=== PATIENT | male | born 1955 | race Caucasian/White ===

== ENCOUNTER 2023-07-08 09:02 | Outpatient (REF) | payer MEDICARE, SELFPAY ==
[2023-07-08 17:57] LABS: Anion Gap 15 (12-20); Blood Urea Nitrogen 18 mg/dL (9-16); Calcium 9.6 mg/dL (8.4-10.2); Carbon Dioxide 25 mmol/L (22-29); Chloride 103 mmol/L (96-108); Estimated Glomerular Filt Rate 55; Glucose Random 171 mg/dL (60-115); Sodium 139 mmol/L (135-145)
== END 2023-07-08 09:03 | disposition home or self-care (01) ==
LOC: HO.HKASLDS 09:02
PROVIDERS: Visit Provider Internal Medicine Hypertension Specialist
DX: N18.9 Chronic kidney disease, unspecified (principal)
CPT/HCPCS: 36415; 80048

== ENCOUNTER 2023-07-13 13:12 | Outpatient (AMB) | payer MEDICARE, SELFPAY ==
[2023-07-13 13:30] VITALS: BP 110/60; PULSE 83; O2SAT 95; BMI 39.1
--- NOTE | 2023-07-13 13:30 | HO.NEPHOV_ITS ---
HPI HPI Comments History of Present Illness Details I had the privilege of seeing Mathew in follow-up of his hypertension and long history of nephrolithiasis. He has history of high BMI. In 2010 he had DUY with left ureteral stone which he passed just before the lithotripsy could be done. In June 2012 he had recurrence of pain and CT showed right proximal ureteral stone of 5 mm with mild hydronephrosis and DUY. He has no blood in the urine or flank pain. His blood pressure is controlled at home. He denies taking nonsteroidal anti-inflammatories on a regular basis. He has history of proteinuria. He denies any systemic complaints. He had RT for prostate cancer. [facility] Medical History (Updated 07/13/23 @ 13:38 by Luis Mcdaniels MD) Hypertension Type 2 diabetes mellitus with diabetic nephropathy CKD (chronic kidney disease) Social History Alcohol intake: never Patient Tobacco Use Status: Never used Tobacco Vital Signs 07/13/23 13:30 Height 5 ft 10 in Weight 272 lb 4 oz BMI 39.1 BP 110/60 Blood Pressure Location Lt brachial Position Sitting Pulse 83 Pulse Source Pulse Oximeter Pulse Oximetry (%) 95 Oxygen Delivery Method Room Air Physical Exam Vital Signs: Last Vital Signs Pulse 83 07/13/23 13:30 BP 110/60 07/13/23 13:30 Pulse Ox 95 07/13/23 13:30 Oxygen Delivery Method Room Air 07/13/23 13:30 BMI result Body Mass Index 39.1 Const General: comfortable and no acute distress Orientation/consciousness: patient oriented x3 HEENT Head: Yes normocephalic Mouth: Normal oral and palatal mucosa present Eyes EOM: EOMs intact bilaterally Neck Neck: Yes supple Resp Auscultation: clear to auscultation bilaterally Cardio Jugular venous distension: no JVD Rate: regular rate GI Palpation (GI): Soft to palpation Auscultation: normal bowel sounds General: Yes no CVA tenderness Back/Spine/Pelvis Back: no CVA tenderness Skin General skin exam: no rashes or lesions noted Neuro General: patient oriented x3 and moves all extremities Extrem General: Yes no pedal edema Assessment & Plan Assessment & Plan (1) CKD (chronic kidney disease) stage 2, GFR 60-89 ml/min: Code(s): N18.2 - Chronic kidney disease, stage 2 (mild) (2) Proteinuria: Code(s): R80.9 - Proteinuria, unspecified Qualifiers: Proteinuria type: other Qualified Code(s): R80.8 - Other proteinuria (3) Nephrolithiasis: Code(s): N20.0 - Calculus of kidney (4) Renal cyst: Code(s): N28.1 - Cyst of kidney, acquired Plan Mathew has stable renal functions. His serum creatinine is currently 1.3. 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 His blood pressure has been at goal. He needs to lose some weight. He could continue current dose of lisinopril. He avoids nonsteroidal anti-inflammatory medications. He maintains good hydration. He has not had any renal calculi recently. He needs to maintain appropriate diet for his renal stone disease. I ordered a 24 hour urine collection for creatinine clearance. I plan to start him on Farxiga/ Jardiance at next visit. He was encouraged to avoid nonsteroidal anti-inflammatories and maintain good hydration. Follow-up lab work ordered. Appointment given. Answered all questions. Orders: Orders Protein, 24 Hr Urine Group Today N18.2 - Chronic kidney disease, stage 2 (mild), N20.0 - Calculus of kidney, N28.1 - Cyst of kidney, acquired, R80.9 - Proteinuria, unspecified Creatinine Today N18.2 - Chronic kidney disease, stage 2 (mild), N20.0 - Calculus of kidney, N28.1 - Cyst of kidney, acquired, R80.9 - Proteinuria, unspecified Blood Urea Nitrogen Today N18.2 - Chronic kidney disease, stage 2 (mild), N20.0 - Calculus of kidney, N28.1 - Cyst of kidney, acquired, R80.9 - Proteinuria, unspecified Electrolytes Today N18.2 - Chronic kidney disease, stage 2 (mild), N20.0 - Calculus of kidney, N28.1 - Cyst of kidney, acquired, R80.9 - Proteinuria, unspecified Immunofixation Pnl, Serum Today N18.2 - Chronic kidney disease, stage 2 (mild), N20.0 - Calculus of kidney, N28.1 - Cyst of kidney, acquired, R80.9 - Proteinuria, unspecified Coding Level of Care Code Est Pt Level 4 (08021) Diagnoses CKD (chronic kidney disease) stage 2, GFR 60-89 ml/min N18.2 Other proteinuria R80.8 Proteinuria type: other Nephrolithiasis N20.0 Renal cyst N28.1 Results Reviewed Nephrology Results: Sodium 139 mmol/L (135-145) 07/08/23 Potassium 4.0 mmol/L (3.3-5.1) 07/08/23 Chloride 103 mmol/L (96-108) 07/08/23 Carbon Dioxide 25 mmol/L (22-29) 07/08/23 BUN 18 mg/dL (9-16) H 07/08/23 Creatinine 1.30 mg/dL (0.5-1.4) 07/08/23 Calcium 9.6 mg/dL (8.4-10.2) 07/08/23
== END 2023-07-13 14:17 | disposition home or self-care (01) ==
PROVIDERS: PCP Internal Medicine; Visit Provider Internal Medicine Nephrology
DX: N18.2 Chronic kidney disease, stage 2 (mild) (principal); R80.8 Other proteinuria; N20.0 Calculus of kidney; N28.1 Cyst of kidney, acquired
CPT/HCPCS: 99214

== ENCOUNTER → 2023-07-13 13:12 | Outpatient (BNVA) | payer MEDICARE, SELFPAY | PROVIDERS: Visit Provider Internal Medicine Nephrology | DX: N18.2 Chronic kidney disease, stage 2 (mild) (principal); N20.0 Calculus of kidney; N28.1 Cyst of kidney, acquired; R80.8 Other proteinuria | CPT/HCPCS: 99212 ==

== ENCOUNTER 2023-10-20 11:09 | Outpatient (REF) | payer MEDICARE, SELFPAY ==
[2023-10-20 18:14] LABS: Creatinine, mg/dL 92.21; Protein mg/dL 22 mg/dL
[2023-10-20 18:15] LABS: Anion Gap 17 (12-20); Blood Urea Nitrogen 15 mg/dL (9-16); Carbon Dioxide 26 mmol/L (22-29); Chloride 102 mmol/L (96-108); Estimated Glomerular Filt Rate 57; Potassium 4.5 mmol/L (3.3-5.1); Sodium 140 mmol/L (135-145)
[2023-10-20 20:32] LABS: Protein 24 Hr Urine 473 mg/Day (<150); Total Volume 24 Hour Urine 2150 mL
[2023-10-26 11:49] LABS: IgA 158 mg/dL (70-320); IgG 624 mg/dL (600-1540); IgM 50 mg/dL (50-300)
== END 2023-10-20 11:10 | disposition home or self-care (01) ==
LOC: HO.HKASLDS 11:09
PROVIDERS: Visit Provider Internal Medicine Nephrology
DX: N28.1 Cyst of kidney, acquired (principal); N20.0 Calculus of kidney; R80.9 Proteinuria, unspecified; N18.2 Chronic kidney disease, stage 2 (mild)
CPT/HCPCS: 36415; 80051; 82565; 82784; 84156; 84520; 86334

== ENCOUNTER 2023-10-26 10:44 | Outpatient (AMB) | payer MEDICARE, SELFPAY ==
[2023-10-26 11:02] VITALS: BP 126/60; PULSE 96; O2SAT 93; BMI 38.3
--- NOTE | 2023-10-26 11:02 | HO.NEPHOV_ITS ---
Vital Signs 10/26/23 11:02 Height 5 ft 10 in Weight 267 lb BMI 38.3 BP 126/60 Blood Pressure Location Lt brachial Position Sitting Pulse 96 Pulse Source Pulse Oximeter Pulse Oximetry (%) 93 Oxygen Delivery Method Room Air Intake Visit Reasons: 3 mon follow up/ Conf Embedded Software Developer Required: No Accompanied by: Self / Same As Patient Allergies simvastatin Allergy (Verified 10/26/23 11:04) Unknown HPI Comments Details: I had the privilege of seeing Mathew in follow-up of his hypertension and long history of nephrolithiasis. He has history of high BMI. In 2010 he had DUY with left ureteral stone which he passed just before the lithotripsy could be done. In June 2012 he had recurrence of pain and CT showed right proximal ureteral stone of 5 mm with mild hydronephrosis and DUY. He has no blood in the urine or flank pain. His blood pressure is controlled at home. He denies taking nonsteroidal anti-inflammatories on a regular basis. He has history of proteinuria. He denies any systemic complaints. He had RT for prostate cancer. [facility] Medical History (Updated 07/13/23 @ 13:38 by Luis Mcdaniels MD) Hypertension Type 2 diabetes mellitus with diabetic nephropathy CKD (chronic kidney disease) Surgical History History of wisdom tooth extraction History of appendectomy History of cataract surgery Family History Sister Diabetes Hypertension A-fib Dementia Mother Stroke Father Prostate cancer Heart disease Social History Alcohol intake: never Patient Tobacco Use Status: Never used Tobacco Physical Exam Vital Signs: Last Vital Signs Pulse 96 10/26/23 11:02 BP 126/60 10/26/23 11:02 Pulse Ox 93 10/26/23 11:02 Oxygen Delivery Method Room Air 10/26/23 11:02 BMI result Body Mass Index 38.3 Const General: comfortable and no acute distress Orientation/consciousness: patient oriented x3 HEENT Head: Yes normocephalic Mouth: Normal oral and palatal mucosa present Eyes EOM: EOMs intact bilaterally Neck Neck: Yes supple Resp Auscultation: clear to auscultation bilaterally Cardio Jugular venous distension: no JVD Rate: regular rate GI Palpation (GI): Soft to palpation Auscultation: normal bowel sounds General: Yes no CVA tenderness Back/Spine/Pelvis Back: no CVA tenderness Skin General skin exam: no rashes or lesions noted Neuro General: patient oriented x3 and moves all extremities Extrem General: Yes no pedal edema Results Reviewed Nephrology Results: Sodium 140 mmol/L (135-145) 10/20/23 Potassium 4.5 mmol/L (3.3-5.1) 10/20/23 Chloride 102 mmol/L (96-108) 10/20/23 Carbon Dioxide 26 mmol/L (22-29) 10/20/23 BUN 15 mg/dL (9-16) 10/20/23 Creatinine 1.26 mg/dL (0.5-1.4) 10/20/23 Calcium 9.6 mg/dL (8.4-10.2) 07/08/23 Assessment & Plan Assessment & Plan (1) Proteinuria: Code(s): R80.9 - Proteinuria, unspecified Category: Medical Qualifiers: Proteinuria type: other Qualified Code(s): R80.8 - Other proteinuria (2) CKD (chronic kidney disease) stage 2, GFR 60-89 ml/min: Code(s): N18.2 - Chronic kidney disease, stage 2 (mild) Category: Medical (3) Nephrolithiasis: Code(s): N20.0 - Calculus of kidney Category: Medical (4) Renal cyst: Code(s): N28.1 - Cyst of kidney, acquired Category: Medical Plan Mathew has stable renal functions. His serum creatinine is currently 1.26. 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 His blood pressure has been at goal. He needs to lose some weight. He could continue current dose of lisinopril, which I may increase at next visit. He avoids nonsteroidal anti-inflammatory medications. He maintains good hydration. He has not had any renal calculi recently. He needs to maintain appropriate diet for his renal stone disease. He is going to start Trulicity soon. I plan to start him on Farxiga/ Jardiance with time. He was encouraged to avoid nonsteroidal anti-inflammatories and maintain good hydration. Follow-up lab work ordered. Appointment given. Answered all questions. Orders: Orders Creatinine Today N18.2 - Chronic kidney disease, stage 2 (mild), N20.0 - Calculus of kidney, N28.1 - Cyst of kidney, acquired, R80.8 - Other proteinuria Blood Urea Nitrogen Today N18.2 - Chronic kidney disease, stage 2 (mild), N20.0 - Calculus of kidney, N28.1 - Cyst of kidney, acquired, R80.8 - Other proteinuria Protein Creatinine Ratio, Ur Today N18.2 - Chronic kidney disease, stage 2 (mild), N20.0 - Calculus of kidney, N28.1 - Cyst of kidney, acquired, R80.8 - Other proteinuria Electrolytes Today N18.2 - Chronic kidney disease, stage 2 (mild), N20.0 - Calculus of kidney, N28.1 - Cyst of kidney, acquired, R80.8 - Other proteinuria Coding Level of Care Code Est Pt Level 4 (14502) Diagnoses Other proteinuria R80.8 Proteinuria type: other CKD (chronic kidney disease) stage 2, GFR 60-89 ml/min N18.2 Nephrolithiasis N20.0 Renal cyst N28.1
== END 2023-10-26 11:34 | disposition home or self-care (01) ==
PROVIDERS: Visit Provider Internal Medicine Nephrology
DX: R80.8 Other proteinuria (principal); N18.2 Chronic kidney disease, stage 2 (mild); N20.0 Calculus of kidney; N28.1 Cyst of kidney, acquired
CPT/HCPCS: 99214

== ENCOUNTER → 2023-10-26 10:44 | Outpatient (BNVA) | payer MEDICARE, SELFPAY | PROVIDERS: Visit Provider Internal Medicine Nephrology | DX: I12.9 Hypertensive chronic kidney disease with stage 1 through stage 4 chronic kidney disease, or unspecified chronic kidney disease (principal); N20.0 Calculus of kidney; R80.9 Proteinuria, unspecified; N28.1 Cyst of kidney, acquired; N18.2 Chronic kidney disease, stage 2 (mild) | CPT/HCPCS: 99212 ==

== ENCOUNTER 2024-05-11 14:21 | Outpatient (REF) | payer MEDICARE, SELFPAY ==
[2024-05-11 17:54] LABS: Anion Gap 14 (12-20); Blood Urea Nitrogen 25 mg/dL (9-16); Carbon Dioxide 26 mmol/L (22-29); Chloride 103 mmol/L (96-108); Estimated Glomerular Filt Rate 53; Potassium 3.6 mmol/L (3.3-5.1); Sodium 139 mmol/L (135-145)
[2024-05-11 18:14] LABS: Creatinine Urine 164.49 mg/dL; Protein/Creatinine Ratio, Ur 0.35 (<0.2); Total Protein Urine Random 57 mg/dL (<12)
--- OUTSIDE RECORDS SUMMARY | 2024-05-11 18:19 | XMS_ITS | Clinical Summary ---
Author Organization [facility] Address [address] [facility] [address] [place] [address] Phone Care Team Providers Care Endodontic Assistant Name Role Phone Aimee Quigley MD Primary Care Provider [phone] Allergies Active Allergy Reactions Criticality Noted Date Comments Simvastatin Other (see comments) 11/11/2020 Medications multivitamine, geriatric, (CENTRUM SILVER) tablet Take 1 tablet by mouth 1 (one) time each day Active metFORMIN (GLUCOPHAGE) 1000 MG tablet Take 1,000 mg by mouth 1 (one) time each day in the morning 500mg at night 1 Active allopurinol (ZYLOPRIM) 300 MG tablet Take 300 mg by mouth 1 (one) time each day in the morning 2 Active allopurinol (ZYLOPRIM) 100 MG tablet Take 200 mg by mouth 1 (one) time each day in the evening 9 Active colchicine 0.6 MG tablet if needed 2 Active Praluent 75 MG/ML solution auto-injector INJECT 1 PEN SUBCUTANEOUSLY EVERY 2 WEEKS 2 Active Ozempic, 0.25 or 0.5 MG/DOSE, 2 MG/1.5ML solution pen-injector per week 3 Active lisinopril-hyd roCHLOROthiazi de (PRINZIDE,ZEST ORETIC) 10-12.5 MG per tablet Take 1 tablet by mouth 1 (one) time each day Active Active Problems Problem Noted Date Diagnosed Date Benign polyp of colon 06/03/2021 Depressive disorder 06/03/2021 Diabetes mellitus 06/03/2021 Gout 06/03/2021 Hypercholesterolemia 06/03/2021 Malignant neoplasm of prostate 06/03/2021 Obesity 06/03/2021 Obstructive sleep apnea syndrome 06/03/2021 Tubular adenoma 06/03/2021 Type 2 diabetes mellitus with diabetic nephropat hy 06/03/2021 Hypertension 11/12/2020 Acquired renal cystic disease 11/11/2020 Chronic kidney disease stage 3 11/11/2020 Essential hypertension 11/11/2020 Proteinuria 11/11/2020 Renal stone 11/11/2020 Immunizations Name Administration Dates Next Due Pneumococcal Conjugate 13-Valent 01/02/2015 Pneumococcal Polysaccharide 01/27/2016 Tdap 03/16/2012 Zoster 01/02/2015 Family History Medical History Relation Comments Cancer Father prostate Gout Father Heart disease Father Hypertension Father Stroke Father Diabetes Sibling 1 sister Hypertension Sibling 2 Gout Sibling 3 sister Relation Status Comments Father Mother Sibling 1 Sibling 2 Sibling 3 Social History Tobacco Use Types Packs/Day Years Used Date Smoking Tobacco: Never Smokeless Tobacco: Never Tobacco Cessation:Counseling Given: Not Answered Alcohol Use Standard Drinks/Week Comments Yes 0 (1 standard drink = 0.6 oz pure alcohol) Alcoholic Drinks/day: Occasional social drink Sex and Gender Information Value Date Recorded Sex Assigned at Not on file Legal Sex Male 5:07 PM EST Gender Identity Not on file Sexual Orientation Not on file Last Filed Vital Signs Vital Sign Reading Time Taken Comments Blood Pressure 118/72 07/02/2022 3:19 PM EDT Pulse 72 07/02/2022 3:19 PM EDT Temperature - - Respiratory Rate - - Oxygen Saturation 95% 12/23/2021 3:31 PM EDT Inhaled Oxygen Concentration - - Weight 120 kg (265 lb) 07/02/2022 3:19 PM EDT Height 175.3 cm (5' 9 ) 04/23/2020 12:01 PM EST Body Mass Index 39.13 04/23/2020 12:01 PM EST Plan of Treatment Health Maintenance Due Date Last Done Comments Colorectal Cancer Screening: Annual FOBT 07/08/2003 Colorectal Cancer Screening: Colonoscopy 07/08/2003 Colorectal Cancer Screening: Sigmoidoscopy 07/08/2003 Pneumococcal Vaccine: 65+ Years (3 of 3 - PPSV23 or PCV20) 01/26/2021 01/27/2016, 01/02/2015 Diabetes: Hemoglobin A1C 06/03/2021 10/10/2018 Diabetes: Ophthalmology Exam 06/03/2021 Diabetes: Pedal Pulse Checked 06/03/2021 Diabetes: Sensory Foot Exam 06/03/2021 Diabetes: Visual Foot Exam 06/03/2021 Influenza Vaccine (#1) 2023 Hepatitis B Vaccine Aged Out No longe r eligible based on patient's age to complete this topic Procedures Procedure Name Priority Date/Time Associated Diagnosis Comments BLOOD PANEL (HC) Routine 10/10/2018 12:0 0 AM EDT from Last 3 Months or Most Recently Relevant to Health Maintenance Results * (ABNORMAL) Blood Panel (10/10/2018 12:00 AM EDT) Sodium 140 137 - 145 mmol/L PVNMA Potassium 4.4 3.5 - 5.1 mmol/L PVNMA BUN 22(H) 9 - 20 mg/dl PVNMA Carbon Dioxide (CO2) 27 22 - 30 mmol/L PVNMA eGFR 67 >60 ml/min PVNMA Hemoglobin A1C 6.9(H) <5 % PVNMA Creatinine 1.3 0.70 - 1.30 mg/dl PVNMA eGFR Non- 58(L) >60 ml/min PVNMA 10/10/2018 us Rtama Conversion LAB [id number] LICITED RESULTS Final Result PVNMA from Last 3 Months or Most Recently Relevant to Health Maintenance Insurance [employer] Care Teams Endodontic Assistant Relationship Specialty Start Date End Date Aimee Quigley MD PCP - General Internal Medicine 06/03/21
--- OUTSIDE RECORDS SUMMARY | 2024-05-11 18:19 | XMS_ITS | Clinical Summary ---
Author Organization [facility] Address [address] [place] [address] Care Team Providers Care Rod And Tube Straightener Name Role Phone Karrie Ferreira MD Primary Care Provider [phone] Allergies Active Allergy Reactions Criticality Noted Date Comments Statins Other (See Comments) 11/11/2020 Medications Medication Sig Dispensed Refills Start Date End Date Status metFORMIN (GLUCOPHAGE) 1000 MG tablet Take 1 tablet (1,000 mg total) by mouth. 12/23/2022 Active lisinopril-hydroC HLOROthiazide (PRINZIDE,ZESTORE TIC) 10-12.5 MG per tablet Take 1 tablet by mouth. Active allopurinol (ZYLOPRIM) 300 MG tablet Take 1 tablet (300 mg total) by mouth 2 times a day. Active glipiZIDE (GLUCOTROL XL) 5 MG 24 hr tablet Take 1 tablet (5 mg total) by mouth. Active Repatha 140 MG/ML injection INJECT 140 MG SUBCUTANEOUS INFUSION EVERY 14 DAYS Active Trulicity 0.75 MG/0.5ML prefilled pen injection INJECT 1 PREFILLED PEN SUBCUTANEOUSLY ONCE WEEKLY 12/29/2023 Active Multiple Vitamins-Minerals (Centrum Silver) tablet Take 1 tablet by mouth daily. Active primidone (MYSOLINE) 50 MG tabletIndications :Benign essential tremor Start 0.5 tablet nightly for 2 weeks then increase to 1 tablet nightly 90 tablet 3 01/17/2024 Active Active Problems Problem Noted Date Diagnosed Date Diabetes mellitus 06/03/2021 Type 2 diabetes mellitus with diabetic nephropat hy 06/03/2021 Essential hypertension 11/11/2020 Family History Medical History Relation Name Comments Prostate cancer Father Stroke Mother Atrial fibrillation Sister 1 Diabetes type II Sister 1 Dementia Sister 2 Tremor Neg Hx Relation Name Status Comments Father Mother Sister 1 Alive Sister 2 Alive Social History Tobacco Use Types Packs/Day Years Used Date Smoking Tobacco: Never Smokeless Tobacco: Never Alcohol Use Standard Drinks/Week Comments Not Currently 0 (1 standard drink = 0.6 oz pur e alcohol) Sex and Gender Information Value Date Recorded Sex Assigned at Male 11/11/2023 10:13 AM EDT Gender Identity Male 11/11/2023 10:13 AM EDT Sexual Orientation Heterosexual (straight) 11/10 10:13 AM EDT Last Filed Vital Signs Vital Sign Reading Time Taken Comments Blood Pressure - - Pulse - - Temperature - - Respiratory Rate - - Oxygen Saturation 97% 01/17/2024 9:45 AM EDT Inhaled Oxygen Concentration - - Weight 119 kg (262 lb) 01/17/2024 9:45 AM EDT Height 177.8 cm (5' 10 ) 01/17/2024 9:45 AM EDT Body Mass Index 37.59 01/17/2024 9:45 AM EDT Plan of Treatment Upcoming Encounters Date Type Department Care Team (Late st Contact Info) Description 06/08/2024 11:00 AM EST Office Visit [facility] Neurology [place] [address] [place] [address] Maikel Al MD [address] [address] Health Maintenance Due Date Last Done Comments Hepatitis C Virus Screening 1954 Creatinine with GFR 1964 Foot Exam 1964 Hemoglobin A1C 1964 Lipid Panel 1964 Ophthalmology Exam 1964 Microalbumin/Creatinine Ratio Urine 1972 DTaP/Tdap/Td Vaccines (1 - Tdap) 1973 Pneumococcal Vaccines 50+ (1 of 2 - PCV) 1973 Colonoscopy 07/08/1999 Zoster (Shingles) Vaccine (1 of 2) 2004 RSV Vaccine 60 years and older and Patients (1 - Risk 60-74 years 1-dose series) 2014 Influenza Vaccine 11/11/2023 01/01/2023, , 01/16/2022, Additional history exists COVID-19 Vaccine ( season) 2023 08/06/2021, 01/27/2021, 07/22/2020, Additional history exists Hepatitis B Vaccines Aged Out No long er eligible based on patient's age to complete this topic Care Teams Rod And Tube Straightener Relationship Specialty Start Date End Date Karrie Ferreira MD [address] [place] [address] PCP - General Internal Medicine 11/11/23
== END 2024-05-11 14:22 | disposition home or self-care (01) ==
LOC: HO.HKASLDS 14:21
PROVIDERS: Visit Provider Internal Medicine Nephrology
DX: N18.2 Chronic kidney disease, stage 2 (mild) (principal); N28.1 Cyst of kidney, acquired; N20.0 Calculus of kidney; R80.8 Other proteinuria
CPT/HCPCS: 36415; 80051; 82565; 82570; 84156; 84520

== ENCOUNTER 2024-05-16 10:37 | Outpatient (AMB) | payer MEDICARE, SELFPAY ==
--- NOTE | 2024-05-16 10:49 | HO.NEPHOV_ITS ---
Vital Signs 05/16/24 10:51 Height 5 ft 10 in Weight 249 lb 6 oz BMI 35.8 BP 104/60 Blood Pressure Location Lt brachial Position Sitting Pulse 82 Pulse Source Pulse Oximeter Pulse Oximetry (%) 97 Oxygen Delivery Method Room Air Intake Visit Reasons: 6 mon follow up-[facility] Showroom Manager Required: No Accompanied by: Self / Same As Patient Allergies simvastatin Allergy (Verified 05/16/24 10:51) Unknown HPI Comments Details: Mathew was seen in follow-up of his hypertension and long history of nephrolithiasis. He has history of high BMI. In 2010 he had DUY with left ureteral stone which he passed just before the lithotripsy could be done. In June 2012 he had recurrence of pain and CT showed right proximal ureteral stone of 5 mm with mild hydronephrosis and DUY. He has no blood in the urine or flank pain. His blood pressure is controlled at home. He denies taking nonsteroidal anti-inflammatories on a regular basis. He has history of proteinuria. He denies any systemic complaints. He has H/O RT for prostate cancer. [facility] Medical History (Updated 07/13/23 @ 13:38 by Luis Mcdaniels MD) Hypertension Type 2 diabetes mellitus with diabetic nephropathy CKD (chronic kidney disease) Surgical History History of wisdom tooth extraction History of appendectomy History of cataract surgery Family History Sister Diabetes Hypertension A-fib Dementia Mother Stroke Father Prostate cancer Heart disease Social History Alcohol intake: never Patient Tobacco Use Status: Never used Tobacco Review of Systems Const All systems reviewed & are unremarkable except as noted in HPI and below Physical Exam Const General: comfortable and no acute distress Orientation/consciousness: patient oriented x3 HEENT Head: Yes normocephalic Mouth: Normal oral and palatal mucosa present Eyes EOM: EOMs intact bilaterally Neck Neck: Yes supple Resp Auscultation: clear to auscultation bilaterally Cardio Jugular venous distension: no JVD Rate: regular rate GI Palpation (GI): Soft to palpation Auscultation: normal bowel sounds General: Yes no CVA tenderness Back/Spine/Pelvis Back: no CVA tenderness Skin General skin exam: no rashes or lesions noted Neuro General: patient oriented x3 and moves all extremities Extrem General: Yes no pedal edema Results Reviewed Nephrology Results: Sodium 139 mmol/L (135-145) 05/11/24 Potassium 3.6 mmol/L (3.3-5.1) 05/11/24 Chloride 103 mmol/L (96-108) 05/11/24 Carbon Dioxide 26 mmol/L (22-29) 05/11/24 BUN 25 mg/dL (9-16) H 05/11/24 Creatinine 1.34 mg/dL (0.5-1.4) 05/11/24 Calcium 9.6 mg/dL (8.4-10.2) 07/08/23 Urine Creatinine 164.49 mg/dL 05/11/24 Protein/Creatinin Ratio 0.35 (<0.2) H 05/11/24 Assessment & Plan Assessment & Plan (1) CKD (chronic kidney disease) stage 2, GFR 60-89 ml/min: Code(s): N18.2 - Chronic kidney disease, stage 2 (mild) Category: Medical (2) Proteinuria: Code(s): R80.9 - Proteinuria, unspecified Category: Medical Qualifiers: Proteinuria type: other Qualified Code(s): R80.8 - Other proteinuria (3) Nephrolithiasis: Code(s): N20.0 - Calculus of kidney Category: Medical (4) Renal cyst: Code(s): N28.1 - Cyst of kidney, acquired Category: Medical Plan Mathew has stable renal functions. 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 His blood pressure has been at goal. He needs to lose some more weight. He could continue current dose of lisinopril, which I may increase with time. He avoids nonsteroidal anti-inflammatory medications. He maintains good hydration. He h as not had any renal calculi recently. He needs to maintain appropriate diet for his renal stone disease. He is going to start Trulicity soon. I plan to start him on Farxiga/ Jardiance with time. He was encouraged to avoid nonsteroidal anti-inflammatories and maintain good hydration. Follow-up lab work ordered. Orders: Orders Creatinine 6 Months N18.2 - Chronic kidney disease, stage 2 (mild), N20.0 - Calculus of kidney, N28.1 - Cyst of kidney, acquired, R80.8 - Other proteinuria Protein Creatinine Ratio, Ur 6 Months N18.2 - Chronic kidney disease, stage 2 (mild), N20.0 - Calculus of kidney, N28.1 - Cyst of kidney, acquired, R80.8 - Other proteinuria Blood Urea Nitrogen 6 Months N18.2 - Chronic kidney disease, stage 2 (mild), N20.0 - Calculus of kidney, N28.1 - Cyst of kidney, acquired, R80.8 - Other proteinuria Electrolytes 6 Months N18.2 - Chronic kidney disease, stage 2 (mild), N20.0 - Calculus of kidney, N28.1 - Cyst of kidney, acquired, R80.8 - Other proteinuria Coding Level of Care Code Est Pt Level 4 (24984) Diagnoses CKD (chronic kidney disease) stage 2, GFR 60-89 ml/min N18.2 Other proteinuria R80.8 Proteinuria type: other Nephrolithiasis N20.0 Renal cyst N28.1
[2024-05-16 10:51] VITALS: BP 104/60; PULSE 82; O2SAT 97; BMI 35.8
--- OUTSIDE RECORDS SUMMARY | 2024-05-16 11:32 | XMS_ITS | Clinical Summary ---
Author Organization [facility] Address [address] [facility] [address] [place] [address] Phone Care Team Providers Care Civil Structural Designer Name Role Phone Aimee Quigley MD Primary Care Provider [phone] Allergies Active Allergy Reactions Criticality Noted Date [...] ml/min PVNMA 10/10/2018 us Rtama Conversion LAB [id number] LICITED RESULTS Final Result PVNMA from Last 3 Months or Most Recently Relevant to Health Maintenance Insurance [employer] Care Teams Civil Structural Designer Relationship Specialty Start Date End Date Aimee Quigley MD PCP - General Internal Medicine 06/03/21
--- OUTSIDE RECORDS SUMMARY | 2024-05-16 11:32 | XMS_ITS ---
Author Name [facility] Organization Unknown Problems Problem Status Onset Date Problem Type Date of Resoluti on Source Tremor active [facility]counterDiagnosisAct [facility]
--- OUTSIDE RECORDS SUMMARY | 2024-05-16 11:32 | XMS_ITS | Clinical Summary ---
Author Organization [facility] Address [address] [place] [address] Care Team Providers Care Box Office Clerk Name Role Phone Karrie Ferreira MD Primary Care Provider [phone] Allergies Active Allergy Reactions Criticality Noted Date [...] Description 06/08/2024 11:00 AM EST Office Visit [facility] Neurology [place] [address] [place] [address] Maikel Al MD [address] [address] Health Maintenance Due Date Last Done Comments [...] age to complete this topic Care Teams Box Office Clerk Relationship Specialty Start Date End Date Karrie Ferreira MD [address] [place] [address] PCP - General Internal Medicine 11/11/23
== END 2024-05-16 11:06 | disposition home or self-care (01) ==
PROVIDERS: PCP Internal Medicine; Visit Provider Internal Medicine Nephrology
DX: N18.2 Chronic kidney disease, stage 2 (mild) (principal); R80.8 Other proteinuria; N20.0 Calculus of kidney; N28.1 Cyst of kidney, acquired
CPT/HCPCS: 99214

== ENCOUNTER → 2024-05-16 10:37 | Outpatient (BNVA) | payer MEDICARE, SELFPAY | PROVIDERS: PCP Internal Medicine; Visit Provider Internal Medicine Nephrology | DX: N20.0 Calculus of kidney (principal); N18.2 Chronic kidney disease, stage 2 (mild); R80.8 Other proteinuria; N28.1 Cyst of kidney, acquired | CPT/HCPCS: 99212 ==

== ENCOUNTER 2024-12-19 11:12 | Outpatient (REF) | payer MEDICARE, SELFPAY ==
--- OUTSIDE RECORDS SUMMARY | 2024-12-19 13:34 | XMS_ITS | Clinical Summary ---
Author Organization [address] Address [address] [place] [phone] Phone Care Team Providers Care Train Brake Operator Name Role Phone Unavailable Primary Care Provider Unavailabl e Social History Tobacco Use Types Packs/Day Years Used Date Smoking Tobacco: Never Assessed Sex and Gender Information Value Date Recorded Sex Assigned at Not on file Legal Sex Male 5:37 PM EST Gender Identity Not on file Sexual Orientation Not on file Plan of Treatment Health Maintenance Due Date Last Done Comments DTaP,Tdap,and Td Vaccines (1 - Tdap) 1973 Pneumococcal Vaccine: 50+ Ye ars (1 of 1 - PCV) 2004 Zoster Vaccines (1 of 2) 2004 Abdominal Aortic Aneurysm (A AA) Screen 03/14/2022 Cholesterol Screening (Lipid Panel) 03/14/2022 Colorectal Cancer Screening: Colonoscopy 03/14/2022 Falls Risk Assessment 03/14/2022 Hepatitis C Screening 03/14/2022 Social Influencers of Health Screening 03/14/2022 COVID-19 Vaccine (1 - 2023-2 5 season) 2023 Depression Screening 04/12/2024 Influenza Vaccine (#1) 2024 RSV Immunization Adult Patie nts (1 - 1-dose 75+ series) 2029 HIB Vaccines Aged Out No longer eligi ble based on patient's age to complete this topic HPV Vaccines Aged Out No longer eligi ble based on patient's age to complete this topic Hepatitis A Vaccines Aged Out No long er eligible based on patient's age to complete this topic Hepatitis B Vaccines Aged Out No long er eligible based on patient's age to complete this topic IPV Vaccines Aged Out No longer eligi ble based on patient's age to complete this topic MMR Vaccines Aged Out No longer eligi ble based on patient's age to complete this topic Meningococcal ACWY Vaccine Aged Out N o longer eligible based on patient's age to complete this topic Meningococcal B Vaccine Aged Out No l onger eligible based on patient's age to complete this topic RSV Immunization Patients Un nura 20 months Aged Out No longer eligible b ased on patient's age to complete this topic Varicella Vaccines Aged Out No longer eligible based on patient's age to complete this topic Insurance [facility] PUBLIC PLANS
--- OUTSIDE RECORDS SUMMARY | 2024-12-19 13:34 | XMS_ITS | Clinical Summary ---
Author Organization [facility] Address [address] [facility] [address] [place] [address] Phone Care Team Providers Care Housing Director Name Role Phone Aimee Quigley MD Primary Care Provider [phone] Allergies Active Allergy Reactions Criticality Noted Date [...] 11/11/2020 Proteinuria 11/11/2020 Renal stone 11/11/2020 Immunizations Immunization Administration Dates Next Due Pneumococcal Conjugate 13-Valent [...] Colorectal Cancer Screening: Sigmoidoscopy 07/08/2003 Pneumococcal Vaccine: 50+ Years (3 of 3 - PCV20 or PCV21) 01/26/2021 01/27/2016, 01/02/2015 Diabetes: Hemoglobin A1C 06/03/2021 10/10/2018 Diabetes: Ophthalmology Exam 06/03/2021 Diabetes: Pedal Pulse Checked 06/03/2021 Diabetes: Sensory Foot Exam 06/03/2021 Diabetes: Visual Foot Exam 06/03/2021 Influenza Vaccine (#1) 2024 Pneumococcal Vaccine: Peds ( 0 to 5 Years) and At-Risk Patients (6 to 49 Years) Discontinued 01/27/2016, 01/02/2015 Hepatitis B Vaccine Aged Out No longe [...] ml/min PVNMA 10/10/2018 us Rtama Conversion LAB [id number] LICITED RESULTS Final Result PVNMA from Last 3 Months or Most Recently Relevant to Health Maintenance Insurance [employer] Care Teams Housing Director Relationship Specialty Start Date End Date Aimee Quigley MD PCP - General Internal Medicine 06/03/21
--- OUTSIDE RECORDS SUMMARY | 2024-12-19 13:34 | XMS_ITS ---
Author Name [facility] Organization Unknown History of Medication Use Medication Directions Dispensed Refills Start Date End Date Stat us primidone (MYSOLINE) 50 MG tablet 0.5 tablet nightly 01/17/2024 06/08/2024 active Trulicity 0.75 MG/0.5ML prefilled pen injection INJECT 1 PREFILLED PEN SUBCUTANEOUSLY ONCE WEEKLY 12/29/2023 active metFORMIN (GLUCOPHAGE) 1000 MG tablet Take 1 tablet (1,000 mg total) by mouth. 12/23/2022 active allopurinol (ZYLOPRIM) 300 MG tablet Take 1 tablet (300 mg total) by mouth 2 times a day. active glipiZIDE (GLUCOTROL XL) 5 MG 24 hr tablet Take 1 tablet (5 mg total) by mouth. active lisinopril-hydroCH LOROthiazide (PRINZIDE,ZESTORET IC) 10-12.5 MG per tablet Take 1 tablet by mouth. active Multiple Vitamins-Minerals (Centrum Silver) tablet Take 1 tablet by mouth daily. 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
--- OUTSIDE RECORDS SUMMARY | 2024-12-19 13:34 | XMS_ITS | Encounter Summary ---
Author Organization [facility] Address [address] [place] [address] Care Team Providers Care Manager Customer Name Role Phone Unavailable Primary Care Provider Unavailabl e Encounter Details Date Type Department Care Team (Late st Contact Info) Description 06/28/2024 Lab Requisition [facility] - Main Lab [address] [facility] [address] [place] [address] Cony Cisneros NP [address] [facility] [address] [place] [address] Malignant neoplasm of prostate (CMS/HCC V24, CMS/HCC V28) Social History Tobacco Use Types Packs/Day Years Used Date Smoking Tobacco: Never Assessed Sex and Gender Information Value Date Recorded Sex Assigned at Not on file Legal Sex Male 5:37 PM EST Gender Identity Not on file Sexual Orientation Not on file documented as of this encounter Plan of Treatment Not on file documented as of this encounter Procedures Procedure Name Priority Date/Time Associated Diagnosis Comments PROSTATE SPECIFIC ANTIGEN DIAGNOSTIC Routine 06/28/2024 8:13 AM EDT Malignant neoplasm of prostate (CMS/HCC) documented in this encounter Results * Prostate specific antigen diagnostic (06/28/2024 8:13 AM EDT) PSA 1.14 0.00 - 4.00 ng/mL LAB CHEMISTRY METHOD 06/28/2024 11:02 AM EDT [facility] Blood Venous blood specimen / Unknown 06/28/2024 8:13 AM EDT 06/28/2024 10:01 AM EDT Narrative [facility] - 06/28/2024 11:02 AM EDT The Siemens Advia Centaur Chemiluminescent Immunoassay is used. Results obtained with different assay methods or kits cannot be used interchangeably. Results cannot be interpreted as absolute evidence of the presence or absence of malignant disease. us Cony Cisneros NP LAB BLOOD ORDERABLES [place] Result [facility] ([facility] [address] [place] [address], documented in this encounter Visit Diagnoses Diagnosis Malignant neoplasm of prostate (CMS/HCC V24, CMS/HCC V28) Malignant neoplasm of prostate documented in this encounter
--- OUTSIDE RECORDS SUMMARY | 2024-12-19 13:34 | XMS_ITS | Clinical Summary ---
Author Organization [facility] Address [address] [place] [address] Care Team Providers Care Slag Wheeler Name Role Phone Karrie Ferreira MD Primary Care Provider [phone] Allergies Active Allergy Reactions Criticality Noted Date Comments Statins Other (See Comments) 11/11/2020 Medications metFORMIN (GLUCOPHAGE) 1000 MG tablet Take 1 tablet (1,000 mg total) by mouth. 3 Active lisinopril-hyd roCHLOROthiazi de (PRINZIDE,ZEST ORETIC) [...] INJECT 1 PREFILLED PEN SUBCUTANEOUSLY ONCE WEEKLY 4 Active Multiple Vitamins-Dorrance als (Centrum Silver) tablet Take 1 tablet by mouth daily. Active primidone (MYSOLINE) 50 MG tabletIndicati ons:Benign essential tremor 0.5 tablet nightly 45 tablet 3 5 Active Active Problems Problem Noted Date Diagnosed [...] Assigned at Male 11/11/2023 10:13 AM EDT Legal Sex Male 2:05 PM EDT Gender Identity Male 11/11/2023 10:13 AM EDT Sexual Orientation Heterosexual (straight) 11/10 10:13 AM EDT Last Filed Vital Signs Vital Sign Reading Time Taken Comments Blood Pressure - - Pulse - - Temperature - - Respiratory Rate - - Oxygen Saturation 98% 06/08/2024 10:58 AM EST Inhaled Oxygen Concentration - - Weight 113 kg (249 lb) 06/08/2024 10:58 AM EST Height 177.8 cm (5' 10 ) 06/08/2024 10:58 AM EST Body Mass Index 35.73 06/08/2024 10:58 AM EST Plan of Treatment Upcoming Encounters Date Type Department Care Team (Late st Contact Info) Description 02/19/2025 3:00 PM EST Office Visit [facility] Neurology [place] [address] [place] [address] Maikel Al MD [address] [address] Health Maintenance Due Date Last Done Comments Advance Care Planning 1955 Hepatitis C Virus Screening 1955 Creatinine with [...] - Risk 60-74 years 1-dose series) 2014 COVID-19 Vaccine ( season) 2023 08/06/2021, 01/27/2021, 07/22/2020, Additional history exists Influenza Vaccine 11/10/2024 01/01/2023, , 01/16/2022, Additional history exists Hepatitis B Vaccines Aged Out No long er eligible based on patient's age to complete this topic Insurance [employer] Care Teams Slag Wheeler Relationship Specialty Start Date End Date Karrie Ferreira MD [address] [place] [address] PCP - General Internal Medicine 11/11/23
[2024-12-19 13:52] LABS: Anion Gap 13 (12-20); Blood Urea Nitrogen 20 mg/dL (9-16); Carbon Dioxide 28 mmol/L (22-29); Chloride 106 mmol/L (96-108); Estimated Glomerular Filt Rate 57; Potassium 4.6 mmol/L (3.3-5.1); Sodium 142 mmol/L (135-145)
[2024-12-19 13:58] LABS: Protein/Creatinine Ratio, Ur 0.80 (<0.2); Total Protein Urine Random 85 mg/dL (<12)
== END 2024-12-19 11:13 | disposition home or self-care (01) ==
LOC: HO.HKASLDS 11:12
PROVIDERS: Visit Provider Internal Medicine Nephrology
DX: N18.2 Chronic kidney disease, stage 2 (mild) (principal); N20.0 Calculus of kidney; N28.1 Cyst of kidney, acquired; R80.8 Other proteinuria
CPT/HCPCS: 36415; 80051; 82565; 82570; 84156; 84520

== ENCOUNTER 2024-12-26 09:38 | Outpatient (AMB) | payer MEDICARE, SELFPAY ==
--- NOTE | 2024-12-26 09:36 | HO.NEPHOV ---
Vital Signs 12/26/24 09:45 Height 5 ft 10 in Weight 241 lb 4 oz BMI 34.6 BP 110/60 Blood Pressure Location Lt brachial Position Sitting Pulse 84 Pulse Source Pulse Oximeter Pulse Oximetry (%) 96 Oxygen Delivery Method Room Air Intake Visit Reasons: Follow up 6mo-Conf Rehabilitation Therapy Technician Required: No Accompanied by: Spouse Allergies simvastatin Allergy (Verified 12/26/24 09:45) Unknown HPI Comments Details: Mathew was seen in follow-up of his hypertension and long history of nephrolithiasis. He has history of high BMI. In 2010 he had DUY with left ureteral stone which he passed just before the lithotripsy could be done. In June 2012 he had recurrence of pain and CT showed right proximal ureteral stone of 5 mm with mild hydronephrosis and DUY. He recently had a renal USS which did not any renal stones but showed B/L renal cysts. He has no blood in the urine or flank pain. His blood pressure is controlled at home. He denies taking nonsteroidal anti-inflammatories on a regular basis. He has proteinuria. He denies any systemic complaints. He has H/O RT for prostate cancer. [facility] Medical History (Updated 12/26/24 @ 09:37 by Luis Mcdaniels MD) Hypertension Type 2 diabetes mellitus with diabetic nephropathy CKD (chronic kidney disease) Surgical History History of wisdom tooth extraction History of appendectomy History of cataract surgery Family History Sister Diabetes Hypertension A-fib Dementia Mother Stroke Father Prostate cancer Heart disease Social History Alcohol intake: never Patient Tobacco Use Status: Never used Tobacco Review of Systems Const All systems reviewed & are unremarkable except as noted in HPI and below Physical Exam Const General: comfortable and no acute distress Orientation/consciousness: patient oriented x3 HEENT Head: Yes normocephalic Mouth: Normal oral and palatal mucosa present Eyes EOM: EOMs intact bilaterally Neck Neck: Yes supple Resp Auscultation: clear to auscultation bilaterally Cardio Jugular venous distension: no JVD Rate: regular rate GI Palpation (GI): Soft to palpation Auscultation: normal bowel sounds General: Yes no CVA tenderness Back/Spine/Pelvis Back: no CVA tenderness Skin General skin exam: no rashes or lesions noted Neuro General: patient oriented x3 and moves all extremities Extrem General: Yes no pedal edema Results Reviewed Nephrology Results: Sodium, (135-145) 142 mmol/L 12/19/24 Potassium, (3.3-5.1) 4.6 mmol/L Δ 12/19/24 Chloride, (96-108) 106 mmol/L 12/19/24 Carbon Dioxide, (22-29) 28 mmol/L 12/19/24 BUN, (9-16) 20 mg/dL H 12/19/24 Creatinine, (0.5-1.4) 1.26 mg/dL 12/19/24 Calcium, (8.4-10.2) 9.6 mg/dL 07/08/23 Urine Creatinine 105.78 mg/dL 12/19/24 Protein/Creatinin Ratio, (<0.2) 0.80 H 12/19/24 Assessment & Plan Assessment & Plan (1) CKD (chronic kidney disease) stage 2, GFR 60-89 ml/min: Code(s): N18.2 - Chronic kidney disease, stage 2 (mild) Category: Medical (2) Nephrolithiasis: Code(s): N20.0 - Calculus of kidney Category: Medical (3) Renal cyst: Code(s): N28.1 - Cyst of kidney, acquired Category: Medical (4) Proteinuria: Code(s): R80.9 - Proteinuria, unspecified Category: Medical Qualifiers: Proteinuria type: other Qualified Code(s): R80.8 - Other proteinuria (5) Diabetic nephropathy: Code(s): E11.21 - Type 2 diabetes mellitus with diabetic nephropathy Category: Medical Qualifiers: Diabetes mellitus type: type 2 Qualified Code(s): E11.21 - Type 2 diabetes mellitus with diabetic nephropathy Plan Mathew has stable renal functions. 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 His blood pressure has been at goal. He needs to lose some more weight. He could continue current dose of lisinopril, which I may increase with time. He avoids nonsteroidal anti-inflammatory medications. He maintains good hydration. He has not had any renal calculi recently. He needs to maintain appropriate diet for his renal stone disease. I started him on Jardiance 10 mg daily. If he is able to afford Jardiance , he can come off glipizide. He was encouraged to avoid nonsteroidal anti-inflammatories and maintain good hydration. Follow-up lab work ordered. Orders: Orders Protein Creatinine Ratio, Ur 4 Months E11. - Type 2 diabetes mellitus with diabetic nephropathy, N18.2 - Chronic kidney disease, stage 2 (mild), N20.0 - Calculus of kidney, N28.1 - Cyst of kidney, acquired, R80.8 - Other proteinuria Creatinine 4 Months E11. - Type 2 diabetes mellitus with diabetic nephropathy, N18.2 - Chronic kidney disease, stage 2 (mild), N20.0 - Calculus of kidney, N28.1 - Cyst of kidney, acquired, R80.8 - Other proteinuria Hemoglobin A1c 4 Months E11. - Type 2 diabetes mellitus with diabetic nephropathy, N18.2 - Chronic kidney disease, stage 2 (mild), N20.0 - Calculus of kidney, N28.1 - Cyst of kidney, acquired, R80.8 - Other proteinuria Electrolytes 4 Months E11. - Type 2 diabetes mellitus with diabetic nephropathy, N18.2 - Chronic kidney disease, stage 2 (mild), N20.0 - Calculus of kidney, N28.1 - Cyst of kidney, acquired, R80.8 - Other proteinuria Calcium 4 Months E11. - Type 2 diabetes mellitus with diabetic nephropathy, N18.2 - Chronic kidney disease, stage 2 (mild), N20.0 - Calculus of kidney, N28.1 - Cyst of kidney, acquired, R80.8 - Other proteinuria Blood Urea Nitrogen 4 Months E11. - Type 2 diabetes mellitus with diabetic nephropathy, N18.2 - Chronic kidney disease, stage 2 (mild), N20.0 - Calculus of kidney, N28.1 - Cyst of kidney, acquired, R80.8 - Other proteinuria Medications: New empagliflozin (Jardiance) 10 mg PO DAILY 90 tabs 3RF Coding Level of Care Code Est Pt Level 4 (30222) Diagnoses CKD (chronic kidney disease) stage 2, GFR 60-89 ml/min N18.2 Nephrolithiasis N20.0 Renal cyst N28.1 Other proteinuria R80.8 Proteinuria type: other Diabetic nephropathy associated with type 2 diabetes mellitus Diabetes mellitus type: type 2
[2024-12-26 09:45] VITALS: BP 110/60; PULSE 84; O2SAT 96; BMI 34.6
--- OUTSIDE RECORDS SUMMARY | 2024-12-26 12:16 | XMS_ITS | Clinical Summary ---
Author Organization [facility] Address [address] [facility] [address] [place] [address] Phone Care Team Providers Care Clinical Nurse Manager Name Role Phone Aimee Quigley MD Primary Care Provider [phone] Allergies Active Allergy Reactions Criticality Noted Date [...] ml/min PVNMA 10/10/2018 us Rtama Conversion LAB [id number] LICITED RESULTS Final Result PVNMA from Last 3 Months or Most Recently Relevant to Health Maintenance Insurance [employer] Care Teams Clinical Nurse Manager Relationship Specialty Start Date End Date Aimee Quigley MD PCP - General Internal Medicine 06/03/21
--- OUTSIDE RECORDS SUMMARY | 2024-12-26 12:16 | XMS_ITS | Clinical Summary ---
Author Organization [address] Address [address] [place] [address] Phone Care Team Providers Care Tile Conduit Layer Name Role Phone Unavailable Primary Care Provider [...] 03/14/2022 Social Influencers of Health Screening 03/14/2022 Depression Screening 04/12/2024 COVID-19 Vaccine (1 - 2023-2 5 season) 2024 Influenza Vaccine (#1) 2024 RSV Immunization Adult [...] patient's age to complete this topic Insurance [facility] PUBLIC PLANS
--- OUTSIDE RECORDS SUMMARY | 2024-12-26 12:17 | XMS_ITS | Clinical Summary ---
Author Organization [facility] Address [address] [place] [address] Care Team Providers Care Cage Loader Name Role Phone Karrie Ferreira MD Primary Care Provider [phone] Allergies Active Allergy Reactions Criticality Noted Date [...] PEN SUBCUTANEOUSLY ONCE WEEKLY 4 Active Multiple Vitamins-Ralls als (Centrum Silver) tablet Take 1 tablet [...] Description 02/19/2025 3:00 PM EST Office Visit [facility] Neurology [place] [address] [place] [address] Maikel Al MD [address] [address] Health Maintenance Due Date Last Done Comments [...] 60-74 years 1-dose series) 2014 Influenza Vaccine 11/10/2024 01/01/2023, , 01/16/2022, Additional history exists COVID-19 Vaccine ( season) 2024 08/06/2021, 01/27/2021, 07/22/2020, Additional history exists Hepatitis B Vaccines Aged Out No long er eligible based on patient's age to complete this topic Insurance [employer] Care Teams Cage Loader Relationship Specialty Start Date End Date Karrie Ferreira MD [address] [place] [address] PCP - General Internal Medicine 11/11/23
--- OUTSIDE RECORDS SUMMARY | 2024-12-26 12:17 | XMS_ITS | Encounter Summary ---
Author Organization [facility] Address [address] [place] [address] Care Team Providers Care Body Repairer Name Role Phone Unavailable Primary Care Provider Unavailabl e Encounter Details Date Type Department Care Team (Late st Contact Info) Description 06/28/2024 Lab Requisition [facility] - Main Lab [address] [place] [address] Cony Cisneros NP [address] [facility] [address] [place] [address] Malignant neoplasm of prostate (CMS/HCC V24, CMS/HCC [...] LAB CHEMISTRY METHOD 06/28/2024 11:02 AM EDT [facility] Blood Venous blood specimen / Unknown 06/28/2024 8:13 AM EDT 06/28/2024 10:01 AM EDT Narrative [facility] - 06/28/2024 11:02 AM EDT The Siemens Advia Centaur Chemiluminescent Immunoassay is used. Results obtained with different assay methods or kits cannot be used interchangeably. Results cannot be interpreted as absolute evidence of the presence or absence of malignant disease. us Cony Cisneros NP LAB BLOOD ORDERABLES [place] Result [facility] ([facility]) [facility] [address] [place] [address], documented in this encounter Visit Diagnoses Diagnosis Malignant neoplasm of prostate (CMS/HCC V24, CMS/HCC V28) Malignant neoplasm of prostate documented in this encounter
== END 2024-12-26 10:30 | disposition home or self-care (01) ==
LOC: HO.HKAS 09:39
PROVIDERS: PCP Internal Medicine; Visit Provider Internal Medicine Nephrology
DX: N18.2 Chronic kidney disease, stage 2 (mild) (principal); N20.0 Calculus of kidney; N28.1 Cyst of kidney, acquired; R80.8 Other proteinuria; E11.21 Type 2 diabetes mellitus with diabetic nephropathy
CPT/HCPCS: 99214

== ENCOUNTER → 2024-12-26 09:38 | Outpatient (BNVA) | payer MEDICARE, SELFPAY | PROVIDERS: PCP Internal Medicine; Visit Provider Internal Medicine Nephrology | DX: E11.21 Type 2 diabetes mellitus with diabetic nephropathy (principal); N20.0 Calculus of kidney; N28.1 Cyst of kidney, acquired; R80.8 Other proteinuria; N18.2 Chronic kidney disease, stage 2 (mild) | CPT/HCPCS: 99212 ==